=== PATIENT | female | born 1945 | race Caucasian/White ===

== ENCOUNTER → 2017-10-25 11:15 | Outpatient (CLI) | payer MEDICARE, SELFPAY | PROVIDERS: Visit Provider Nurse Practitioner Family | DX: R19.7 Diarrhea, unspecified (principal); R10.9 Unspecified abdominal pain | CPT/HCPCS: 87045; 87493 ==

== ENCOUNTER → 2019-03-17 11:21 | Outpatient (CLI) | payer MEDICARE, SELFPAY ==
--- NOTE | 2019-03-17 11:29 | XR_ITS ---
PROCEDURE: XR CERVICAL SPINE 5V CLINICAL INDICATION: CERVICALGIA Chronic neck pain COMPARISON: No exams were available for comparison FINDINGS: Normal alignment. There is degenerative disc disease at C5-C6 and C6-C7. There is mild anterolisthesis of C4 on 5 of 2 mm. Endplate hypertrophy is present at C5-C6. Foraminal narrowing is noted on the right at C4-C5 and C5-C6 and on the left at C5-C6. Facet arthritic changes are noted from C4-C7. No fracture or dislocation. No lytic or blastic change. IMPRESSION: Cervical spondylosis with degenerative disc disease and facet arthritic change with foraminal narrowing as described above. Dictated by: Eliud Seth MD 03/17/2019 13:09 Electronically signed by Eliud Seth MD in [place] 03/17/2019 13:09
== END ==
PROVIDERS: PCP Nurse Practitioner Family; Visit Provider Nurse Practitioner Family
DX: M54.2 Cervicalgia (principal)
CPT/HCPCS: 72050

== ENCOUNTER → 2020-11-17 12:44 | Outpatient (CLI) | payer MEDICARE, SELFPAY ==
--- NOTE | 2020-11-17 12:50 | XR_ITS ---
PROCEDURE: XR KNEE LT 3V CLINICAL INDICATION: INJURY TO LT KNEE, INTITIAL ENCOUNTER COMPARISON: No exams were available for comparison FINDINGS: Three views are obtained. Moderate to severe degenerative change of the medial joint compartment and patellofemoral joint with moderate degenerative change of the lateral joint compartment. No acute fracture or dislocation. Some chondrocalcinosis in the lateral joint compartment. Small joint effusion. IMPRESSION: Tricompartmental degenerative changes of the left knee joint with small joint effusion. Some chondrocalcinosis in the lateral joint compartment. Dictated by: Luisito Avila MD 11/17/2020 13:03 Luisito Avila MD in [place] 11/17/2020 13:03
== END ==
PROVIDERS: PCP Nurse Practitioner Family; Visit Provider Nurse Practitioner Family
DX: S89.92XA Unspecified injury of left lower leg, initial encounter (principal)
CPT/HCPCS: 73562

== ENCOUNTER → 2021-04-12 07:50 | Outpatient (CLI) | payer MEDICARE, SELFPAY ==
--- NOTE | 2021-04-12 | CA_ITS ---
APPROVED REPORT Heat Treat Worker: Alejandra RCS, RVS Laterality: Bilateral Study Quality: Good Indications: Dizziness Doppler Spectral Velocity Analysis ECA (R) 72.70/11.80 cm/s ECA (L) 56.10/9.70 cm/s dICA (R) 111.50/41.90 cm/s dICA (L) 64.70/21.40 cm/s Power (R) 86.60/33.70 cm/s Power (L) 88.20/34.80 cm/s pICA (R) 33.80/10.50 cm/s pICA (L) 53.90/15.80 cm/s dCCA (R) 65.00/15.80 cm/s dCCA (L) 57.60/18.70 cm/s pCCA (R) 67.60/14.50 cm/s pCCA (L) 75.60/20.20 cm/s Vert (R) 44.10/13.50 cm/s Vert (L) 16.60/2.10 cm/s ICA/CCA 1.70 ICA/CCA 1.10 Findings Duplex evaluation demonstrates antegrade flow of the bilateral Vertebral Arteries. Duplex evaluation demonstrates stenosis of the right proximal internal carotid artery <20% with PSV <140 cm/sec, EDV <100 cm/sec, and IC/CC Ratio <4.0. Duplex evaluation demonstrates stenosis of the left proximal internal carotid artery <20% with PSV <140 cm/sec, EDV <100 cm/sec, and IC/CC Ratio <4.0. Conclusion Duplex evaluation demonstrates antegrade flow of the bilateral Vertebral Arteries. Duplex evaluation demonstrates stenosis of the right proximal internal carotid artery <20% with PSV <140 cm/sec, EDV <100 cm/sec, and IC/CC Ratio <4.0. Duplex evaluation demonstrates stenosis of the left proximal internal carotid artery <20% with PSV <140 cm/sec, EDV <100 cm/sec, and IC/CC Ratio <4.0. Electronically signed by : Eliud Seth MD 04/12/2021 14:53:51
--- NOTE | 2021-04-12 08:02 | MR_ITS ---
PROCEDURE: MR HEAD/BRAIN WO CON CLINICAL INDICATION: SYNCOPE AND DIZZINESS COMPARISON: No exams were available for comparison TECHNIQUE: Routine multiplanar multi echo sequences are performed without gadolinium enhancement. FINDINGS: No midline shift, mass effect, intracranial hemorrhage, or hydrocephalus is evident. There is generalized atrophy with scattered T2 white matter hyperintensities consistent with microangiopathic changes. No evidence of acute infarction. The cerebellopontine angles, cerebellum, and brainstem has an unremarkable appearance. There is a small T2 hyperintensity in the left cerebral peduncle and could be due to a dilated perivascular space or an old small lacunar infarction. An additional small T2 hyperintensity is present in the inferior and anterior aspect of the basal ganglia measuring 5 mm and may be due to a choroidal fissure cyst or an old small lacunar infarction. Nodularity noted along both right and left aspect of the pituitary superiorly possibly due to partial volume averaging artifact from the clinoid versus true pituitary lesions. Dedicated exam without and with contrast with thin sections may provide further evaluation if clinically warranted. The optic chiasm, corpus callosum, and craniocervical junction have an unremarkable appearance. No mastoid effusion or sinus air-fluid level.. IMPRESSION: 1. No acute intracranial findings. 2. Atrophy with chronic ischemic gliotic changes 3. Possible nodules along the superior aspect of both right and left aspect of the pituitary gland versus partial volume averaging artifact from the anterior clinoid. MRI of the pituitary with thin-section images without and with contrast may further evaluate if clinically desired. Dictated by: Eliud Seth MD 04/13/2021 07:32 Eliud Seth MD in [place] 04/13/2021 07:32
--- NOTE | 2021-04-12 09:20 | XR_ITS ---
PROCEDURE: XR FOOT RT MIN 3V CLINICAL INDICATION: FOOT PAIN RT COMPARISON: No exams were available for comparison FINDINGS: Severe osteoarthritic changes are present at the 1st MTP joint. Subchondral cystic changes are present at the distal aspect of the 1st metatarsal. No fracture or dislocation Other findings:None. 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
== END ==
PROVIDERS: PCP Nurse Practitioner Family; Visit Provider Nurse Practitioner Family
DX: R55 Syncope and collapse (principal); R42 Dizziness and giddiness; M79.671 Pain in right foot
CPT/HCPCS: 70551; 73630; 93880

== ENCOUNTER → 2021-04-21 15:16 | Outpatient (CLI) | payer MEDICARE, SELFPAY ==
[2021-04-21 17:03] LABS: Blood Urea Nitrogen 36 mg/dl (7-17); Estimated Glomerular Filt Rate 31 ml/min (>60); GFR (African American) 38 ML/MIN (>60)
== END ==
PROVIDERS: Visit Provider Nurse Practitioner Family
DX: R55 Syncope and collapse (principal); R42 Dizziness and giddiness
CPT/HCPCS: 36415; 82565; 84520

== ENCOUNTER → 2021-04-26 11:10 | Outpatient (CLI) | payer MEDICARE, SELFPAY ==
--- NOTE | 2021-04-26 11:16 | MR_ITS ---
PROCEDURE INFORMATION: Exam: MR Head Without and With Contrast Exam date and time: 04/26/2021 11:31 AM Age: 75 years old Clinical indication: Patient HX: Abnormal mri 04-12-21. Headache. Dizziness. TECHNIQUE: Imaging protocol: MR of the head without and with intravenous contrast. Contrast material: PROHANCE; Contrast volume: 14 ml; Contrast route: INTRAVENOUS (IV); COMPARISON: MR HEAD/BRAIN WO CON 04/12/2021 8:12 AM FINDINGS: Brain: No restricted diffusion within the brain to suggest an acute infarct. There are multiple foci of FLAIR hyperintensity within the cerebral white matter. There is no mass effect or restricted diffusion associated with these foci. In a patient this age, this likely represents chronic small vessel ischemic disease. Stable volume loss of the cerebellum and cerebrum, consistent with atrophy. No cerebral edema. No abnormally enhancing intracranial mass is identified. Cerebral ventricles: Mild age-appropriate prominence of the ventricles. Pituitary gland and sella: The pituitary stalk is midline. No well-defined pituitary lesion is identified on postcontrast images. No suprasellar mass or mass effect upon the optic chiasm is visualized. Bones/joints: Unremarkable, as visualized. Paranasal sinuses: Minimal mucosal thickening of a few ethmoid air cells. Mastoid air cells: No mastoid effusion. Orbital cavity: A right orbital lens implant is visualized. Soft tissues: Unremarkable, as visualized. Other vasculature: There is preservation of flow voids within the intracranial internal carotid arteries bilaterally. IMPRESSION: 1. No acute infarct. 2. No well-defined pituitary lesion is identified. 3. White matter disease, likely representing chronic small vessel ischemic disease. 4. Stable atrophy. 5. Additional findings described above.
== END ==
PROVIDERS: PCP Nurse Practitioner Family; Visit Provider Nurse Practitioner Family
DX: R55 Syncope and collapse (principal); R42 Dizziness and giddiness
CPT/HCPCS: 70553; A9576

== ENCOUNTER → 2022-07-27 12:39 | Outpatient (CLI) | payer MEDICARE, SELFPAY ==
--- NOTE | 2022-07-27 12:44 | XR_ITS ---
FINAL REPORT CLINICAL HISTORY: upper and lower back pain COMPARISON: None FINDINGS: THORACIC SPINE: Three views of the thoracic spine were obtained. There is no fracture present. There is rightward curvature of the thoracic spine. There are moderate to severe degenerative changes. LUMBAR SPINE: Five views of the lumbar spine were obtained. There is no fracture present. There is leftward curvature of the lumbar spine. There is 8 mm of anterolisthesis of L4 on L5. There is vacuum phenomenon at L4-5 and L5-S1. Facet arthropathy is noted in the lower lumbar spine. IMPRESSION: Degenerative changes with no acute process. Reviewed, Interpreted and Dictated by Ovidio Bates III, MD Transcribed by Tiffany Lunsford Authenticated and [facility]
== END ==
PROVIDERS: PCP Nurse Practitioner Family; Visit Provider Nurse Practitioner Family
DX: M54.6 Pain in thoracic spine (principal); M54.50 Low back pain, unspecified
CPT/HCPCS: 72084

== ENCOUNTER → 2022-08-16 14:04 | Outpatient (POV) | payer MEDICARE, SELFPAY ==
[2022-08-16 15:19] VITALS: BP 127/93; PULSE 105; RESP 19; O2SAT 97; BMI 29.4
--- NOTE | 2022-08-16 16:20 | EXP.PAIN.OV ---
HPI Data of Consult Patient: new to practice Consult date: 08/16/22 Requesting Physician: Katie Glover APRN Primary Care Provider: Yecenia Dailey APRN Consult Narrative Reason for consult: Mid/low back pain, right leg neuropathy History of present illness: Ms. Florentino is a 76 year old female who presents today as a new patient. She is a referral from Yecenia Louis office. Today she rates her pain a 7 out of 10. Patient states her pain is all around her mid to low back and that it does radiate bilaterally towards her ribs. Patient states that she did think that she had pulled a muscle when this initially started approximately 1 year ago. She does state that it has worsened since. She does describe this as a aching, throbbing sensation that is worse with increased activity. She does state this interferes with her ability to perform activities of daily living such as cooking and cleaning or even simply walking for prolonged periods. patient denies any surgical history on her back. She states that she has had epidural injections in the past that did provide significant relief of upwards of 3 to 4 months. She states the provider that previously did these injections is no longer at her doctor's office and so she has not been able to get these injections for a little while. Patient does state that she has had a right hip fracture in the past and had pin placement and then later revision surgery at the same location that did cause significant residual pain and neuropathy that radiates down her right leg. Patient cannot tolerate any NSAIDs due to lowered kidney function. She was previously on diclofenac and has stopped this. Patient does take Flexeril as needed however she states that she does notice some side effects of dry mouth. She states this medication is only used in times of significant pain. Patient does use Tylenol on a regular basis along with gabapentin 300 mg 3 times daily. Patient denies any side effects from this medication. Her Ian is [id number]. Its been reviewed and appropriate. CC: Katie Glover APRN [facility] Disclaimer: The information contained in this section may have been updated after the patient was seen, as this information can be updated by other users. Medical History (Updated 08/16/22 @ 16:28 by Katie Glover APRN) Cataract Hepatitis C HLD (hyperlipidemia) HTN (hypertension) Surgical History (Updated 08/16/22 @ 15:24 by Diana Carter RN) H/O eye surgery H/O right heart catheterization H/O tubal ligation H/O: hysterectomy Family History (Updated 08/16/22 @ 15:23 by Diana Carter RN) Other No significant family history Social History (Updated 08/16/22 @ 15:26 by Diana Carter RN) Smoking Status: Never smoker alcohol intake: never substance use type: denies use current occupational status: retired Travel in the last 8 weeks: None Review of Systems Review of Systems Review of systems:: pertinent systems reviewed and negative unless documented below Review of systems (narrative): Review of Systems: General: No recent weight changes, no fever, no sleep disturbances Respiratory: No cough, no shortness of air, no recurring pulmonary infections Cardiovascular/peripheral vascular: No chest pain, no palpitations, no edema, no shortness of breath Gastrointestinal: No new onset incontinence, normal bowel movements reported Genitourinary: No new onset incontinence Musculoskeletal: Mid back pain, low back pain, leg pain Psychiatric: [Normal mood/affect] Neurological: [Denies weakness in extremities], [denies balance issues] Meds Home Medications and Allergies Home Medications Medication Instructions Recorded Confirmed Type amlodipine 5 mg tablet 5 mg PO DAILY BLOOD PRESSURE 01/14/18 08/16/22 History biotin 300 mcg tablet 300 mcg PO DAILY SUPPLIMENT 01/14/18 08/16/22 History gabapentin 300 mg capsule 300 mg PO TID Pain 01/14/18 08/16/22 History (Neurontin) mohan
== END ==
PROVIDERS: PCP Nurse Practitioner Family; Visit Provider Nurse Practitioner Family
DX: M51.16 Intervertebral disc disorders with radiculopathy, lumbar region (principal); M43.16 Spondylolisthesis, lumbar region; M47.26 Other spondylosis with radiculopathy, lumbar region; M25.551 Pain in right hip
CPT/HCPCS: 99202; G0463

== ENCOUNTER 2022-08-29 10:47 | Day surgery (SDC) | payer MEDICARE, SELFPAY ==
[2022-08-29 11:06] VITALS: BP 137/80; PULSE 98; RESP 18; TEMP 36.4; O2SAT 98; BMI 28.9
[2022-08-29 11:20] VITALS: BP 135/73; PULSE 84; RESP 18; O2SAT 98
--- NOTE | 2022-08-29 11:26 | EXP.PAIN.PRO ---
Procedure Date: 08/29/22 Time: 11:20 Anesthesiologist:: Randy Corrales CRNA Complications:: None Pre-procedure Diagnosis:: Degenerative disc disease lumbar spine multilevels. Lumbar radiculopathy. Lumbar spondylosis. Post-procedure Diagnosis:: Same. Indications for Procedure:: Patient is a very pleasant 76-year-old female that comes our clinic today for lumbar epidural steroid injection at L4-5 level. Patient has had these in the past at a different facility with significant improvement terms of her overall low back pain as well as bilateral hip and leg pain. Today she rates her pain 7/10. Patient is very active mowing lawns and planting barrientos. She has been moving around a lot with the weather getting warmer. She complains of low back pain as well as bilateral hip and leg radicular symptoms at times. She describes her low back pain as constant, dull, aching. Procedure Details:: Procedure: Lumbar epidural steroid injection under fluoroscopy Informed consent was obtained and the risks and benefits of the procedure were explained to the patient. The patient was taken to the procedure room and noninvasive monitors placed, including noninvasive blood pressure cuff and pulse oximeter. The back was viewed using C-arm Fluoroscopy and prepped using Chloraprep as a cleansing solution and the L4-L5 interspace was palpated. Skin and subcutaneous tissues were anesthetized using lidocaine 1.5% and a 25-gauge needle. After this, an 18-gauge Touhy epidural needle was placed into the L4-L5 interspace and advanced using fluoroscopic guidance and loss of resistance to air until the epidural space was encountered. After confirmation of needle placement in the epidural space, with dye, a solution containing normal saline, 3 mL and Depo-Medrol 80 mg were incrementally injected into the lumbar epidural space. The patient tolerated the procedure well with no complications. The patient was observed in the Pain Clinic and then discharged home neurologically intact. Plan and Disposition:: Patient was discharged without incident.
[2022-08-29 11:27] VITALS: BP 132/74; PULSE 79; RESP 18; O2SAT 98
== END 2022-08-29 11:27 | disposition home or self-care (01) ==
PROVIDERS: PCP Nurse Practitioner Family; Visit Provider Nurse Anesthetist, Certified Registered
DX: M51.16 Intervertebral disc disorders with radiculopathy, lumbar region (principal); M47.26 Other spondylosis with radiculopathy, lumbar region
CPT/HCPCS: 62323; J1040

== ENCOUNTER → 2022-09-25 10:00 | Outpatient (POV) | payer MEDICARE, SELFPAY ==
--- NOTE | 2022-09-25 10:04 | EXP.PAIN.SOA ---
[facility] Pain Management SOAP Note Subjective:: Patient is a pleasant 76-year-old female who presents today for follow-up of lumbar epidural steroid injection L4-L5 on 08/29/2022. We are currently treating the patient for degenerative disc disease of lumbar spine with lumbar radiculopathy symptoms, lumbar facet arthropathy, low back pain, mid back pain, anterolisthesis of lumbar spine, right hip pain. Today the patient rates her pain a 0 out of 10. Patient denies any new trauma or injury. Patient denies any change location or type of pain she experiences. She states that she has had at least 90% improvement following this injection and only had mild tenderness at the site. Patient states she has been able to increase her activity with improved functionality and decreased pain symptoms. Patient does not take any NSAIDs related to her lower kidney function. She is prescribed Flexeril 10 mg as needed and gabapentin 300 mg 3 times daily.? Patient denies any side effects from this medication.? Her Ian is [id number].? Its been reviewed and appropriate. Review of Systems: General: No recent weight changes, no fever, no sleep disturbances Respiratory: No cough, no shortness of air, no recurring pulmonary infections Cardiovascular/peripheral vascular: No chest pain, no palpitations, no edema, no shortness of breath Gastrointestinal: No new onset incontinence, normal bowel movements reported Genitourinary: No new onset incontinence Musculoskeletal: Low back pain Psychiatric: [Normal mood/affect] Neurological: [Denies weakness in extremities], [denies balance issues] Objective:: Physical Exam: General: Alert and oriented x3, no acute distress, pleasant and cooperative Lungs: Respirations even and unlabored, symmetrical chest expansion Eyes: PERRL Musculoskeletal: Flexion and extension of lumbar [spine] somewhat guarded secondary to pain, [antalgic gait noted] Neurological: Speech clear, no gross sensory deficit Assessment:: Degenerative disc disease of lumbar spine with lumbar radiculopathy symptoms, lumbar facet arthropathy, low back pain, mid back pain, anterolisthesis of lumbar spine, right hip pain Plan:: Patient has had significant improvement of her low back pain following her lumbar epidural steroid injection. At this time she does not need any additional injective therapy. Patient will return to clinic in 1 month for reevaluation of symptoms and plan of care. Patient has been instructed to contact the clinic with any concerns before the next appointment. Dr. Kaur has reviewed this note and agrees with this plan of care. This note was dictated using voice recognition software and make contain errors or omissions. [facility] Disclaimer: The information contained in this section may have been updated after the patient was seen, as this information can be updated by other users. Medical History Cataract Hepatitis C HLD (hyperlipidemia) HTN (hypertension) Surgical History H/O eye surgery H/O right heart catheterization H/O tubal ligation H/O: hysterectomy Family History Other No significant family history Social History Smoking Status: Never smoker alcohol intake: never substance use type: denies use current occupational status: retired Travel in the last 8 weeks: None
[2022-09-25 10:09] VITALS: BP 150/87; PULSE 97; RESP 18; O2SAT 97; BMI 29.8
== END ==
PROVIDERS: PCP Nurse Practitioner Family; Visit Provider Nurse Practitioner Family
DX: M51.16 Intervertebral disc disorders with radiculopathy, lumbar region (principal); M47.26 Other spondylosis with radiculopathy, lumbar region; M43.16 Spondylolisthesis, lumbar region; M25.551 Pain in right hip
CPT/HCPCS: 99212; G0463

== ENCOUNTER → 2022-10-23 10:45 | Outpatient (POV) | payer MEDICARE, SELFPAY ==
--- NOTE | 2022-10-23 11:08 | A.OFFVIS_ITS ---
[facility] Pain Management SOAP Note Subjective:: Patient is a pleasant 76-year-old female who presents today for follow-up. We are currently treating the patient for degenerative disc disease of lumbar spine with lumbar radiculopathy symptoms, lumbar facet arthropathy, low back pain, mid back pain, right hip pain. Today she rates her pain a 2 out of 10. Patient denies any new trauma or injury. Patient denies any change to location or type of pain she experiences. Patient previously had a lumbar epidural steroid injection back in the end of August that provided upwards of 90% relief and is still continuing to provide additional improvement. Patient states she has been able to increase her activity with decreased pain symptoms. She does state that she has not had to even use her Flexeril as often due to her significant relief. Patient is c currently managed with tramadol 50 mg 4 times a day from her primary care doctor. Patient denies any side effects from this medication. Her Ian is [id number]. Its been reviewed and appropriate. Review of Systems: General: No recent weight changes, no fever, no sleep disturbances Respiratory: No cough, no shortness of air, no recurring pulmonary infections Cardiovascular/peripheral vascular: No chest pain, no palpitations, no edema, no shortness of breath Gastrointestinal: No new onset incontinence, normal bowel movements reported Genitourinary: No new onset incontinence Musculoskeletal: Low back pain Psychiatric: [Normal mood/affect] Neurological: [Denies weakness in extremities], [denies balance issues] Objective:: Physical Exam: General: Alert and oriented x3, no acute distress, pleasant and cooperative Lungs: Respirations even and unlabored, symmetrical chest expansion Eyes: PERRL Musculoskeletal: Flexion and extension of lumbar [spine] somewhat guarded secondary to pain, [antalgic gait noted] Neurological: Speech clear, no gross sensory deficit Assessment:: Degenerative disc disease of lumbar spine with lumbar radiculopathy symptoms, lumbar facet arthropathy, low back pain, mid back pain, right hip pain Plan:: Patient continues to do well following her lumbar epidural steroid injection and does not require any additional injective therapy at this time. Patient will return to clinic in 3 months for reevaluation of symptoms and plan of care. Patient has been instructed to contact the clinic with any concerns before the next appointment. Dr. Kaur has reviewed this note and agrees with this plan of care. This note was dictated using voice recognition software and make contain errors or omissions. [facility] Disclaimer: The information contained in this section may have been updated after the patient was seen, as this information can be updated by other users. Medical History Cataract Hepatitis C HLD (hyperlipidemia) HTN (hypertension) Surgical History H/O eye surgery H/O right heart catheterization H/O tubal ligation H/O: hysterectomy Family History Other No significant family history Social History Smoking Status: Never smoker alcohol intake: never substance use type: denies use current occupational status: retired Travel in the last 8 weeks: None
[2022-10-23 11:30] VITALS: BP 132/78; PULSE 95; RESP 18; BMI 29.2
== END ==
PROVIDERS: Visit Provider Nurse Practitioner Family
DX: M51.16 Intervertebral disc disorders with radiculopathy, lumbar region (principal); M47.26 Other spondylosis with radiculopathy, lumbar region; M25.551 Pain in right hip
CPT/HCPCS: 99212; G0463

== ENCOUNTER → 2023-03-16 15:50 | Outpatient (CLI) | payer MEDICARE, SELFPAY | PROVIDERS: PCP Nurse Practitioner Family; Visit Provider Nurse Practitioner Family | DX: R82.90 Unspecified abnormal findings in urine (principal); B96.29 Other Escherichia coli [E. coli] as the cause of diseases classified elsewhere | CPT/HCPCS: 87086 ==

== ENCOUNTER → 2023-04-09 10:50 | Outpatient (POV) | payer MEDICARE, SELFPAY ==
--- NOTE | 2023-04-09 11:04 | EXP.PAIN.SOA ---
[facility] Pain Management SOAP Note Subjective:: Patient is a pleasant 77-year-old female who presents today for follow-up. We are currently treating the patient for degenerative disc disease of lumbar spine with lumbar radiculopathy symptoms, lumbar facet arthropathy, low back pain, mid back pain, right hip pain. Today she rates her pain a 5 out of 10. Patient denies any new injury or trauma from our last visit. She does state that she has been experiencing more pain along her low back and bilateral hips. She does describe this as an aching, throbbing sensation with some numbness. She does state the pain interferes with her ability perform activities of daily living such as cooking and cleaning. Patient does state that she had planned on coming back to our office sooner however she frequently would take a couple Tylenol and put it off a little bit longer. She does state that it has really gotten more bothersome now and is interested in any possible help we may be able to provide. She is currently managed with tramadol 50 mg 4 times a day and gabapentin 300 mg 6 times a day from her PCP. She denies any side effects from this medication. Her Ian has been reviewed and is appropriate. Review of Systems: General: No recent weight changes, no fever, no sleep disturbances Respiratory: No cough, no shortness of air, no recurring pulmonary infections Cardiovascular/peripheral vascular: No chest pain, no palpitations, no edema, no shortness of breath Gastrointestinal: No new onset incontinence, normal bowel movements reported Genitourinary: No new onset incontinence Musculoskeletal: Low back pain, bilateral hip pain Psychiatric: [Normal mood/affect] Neurological: [Denies weakness in extremities], [denies balance issues] Objective:: Physical Exam: General: Alert and oriented x3, no acute distress, pleasant and cooperative Lungs: Respirations even and unlabored, symmetrical chest expansion Eyes: PERRL Musculoskeletal: Flexion and extension of lumbar [spine] somewhat guarded secondary to pain, [antalgic gait noted] point tenderness along bilateral SIs with positive bilateral Daniel's, Garth's, Gaenslen's, compression and distraction exam, point tenderness along bilateral greater trochanteric bursa's Neurological: Speech clear, no gross sensory deficit Assessment:: Degenerative disc disease of lumbar spine with lumbar radiculopathy symptoms, lumbar facet arthropathy, low back pain, mid back pain, right hip pain Plan:: Patient is experiencing worsening pain in her low back and bilateral hips. Patient did have limited range of motion of her lumbar spine along with point tenderness at her bilateral SIs and a positive bilateral Daniel's, Garth's, Gaenslen's, compression and distraction exam. Patient did also have point tenderness along her bilateral greater trochanteric bursa's. I have discussed with the patient that she may benefit from bilateral SI injections. Risk and benefits of this injection were explained to the patient and she would like to proceed forward with this plan of care. Have also discussed with patient in future if she continues to have symptoms of bursitis we will look at doing injections at that location and a future date. Patient has tried and failed conservative therapy such as oral medications, heat and ice, topicals, at home exercising and stretching for longer than 12 weeks. Her symptoms have been going on for longer than 6 months. Patient will be scheduled for bilateral SI injections. Patient has been instructed to contact the clinic with any concerns before the next appointment. Dr. Kaur has reviewed this note and agrees with this plan of care. This note was dictated using voice recognition software and make contain errors or omissions. [facility] Disclaimer: The information contained in this section may have been updated after the patient was seen, as this information can be updated by other users. Medical History (Updated 03/16/23 @ 14:
[2023-04-09 12:30] VITALS: BP 159/98; PULSE 99; RESP 18; O2SAT 98; BMI 28.3
== END ==
PROVIDERS: PCP Nurse Practitioner Family; Visit Provider Nurse Practitioner Family
DX: M51.16 Intervertebral disc disorders with radiculopathy, lumbar region (principal); M47.26 Other spondylosis with radiculopathy, lumbar region; M54.6 Pain in thoracic spine; M25.551 Pain in right hip; M70.60 Trochanteric bursitis, unspecified hip; M46.1 Sacroiliitis, not elsewhere classified
CPT/HCPCS: 99212; G0463

== ENCOUNTER 2023-04-24 09:42 | Day surgery (SDC) | payer MEDICARE, SELFPAY ==
[2023-04-24 09:52] VITALS: BP 140/82; PULSE 96; RESP 18; TEMP 36.2; O2SAT 98; BMI 28.3
[2023-04-24 10:04] VITALS: BP 142/91; PULSE 90; O2SAT 97
[2023-04-24 10:05] VITALS: BP 130/79; PULSE 96; RESP 18; O2SAT 98
--- NOTE | 2023-04-24 10:25 | P.PCN_ITS ---
Procedure Date: 04/24/23 Time: 10:00 Anesthesiologist:: Randy Corrales CRNA Complications:: None Pre-procedure Diagnosis:: Bilateral sacroiliitis. Post-procedure Diagnosis:: Same. Indications for Procedure:: Patient is a pleasant 77-year-old female that comes our clinic today for bilateral sacroiliac joint injections. Patient reports low lumbar back pain bilaterally. Bilateral posterior hip pain. She rates her pain 8/10. Procedure Details:: Procedure: Bilateral sacroiliac joint injections under fluoroscopy Informed consent was obtained and the risks and benefits of the procedure were explained to the patient.~ The patient was taken to the procedure room and noninvasive monitors were placed including a noninvasive blood pressure cuff and pulse oximeter.~ The patient was placed prone on the procedure table. Both hips were cleansed using Betadine as a cleansing solution. C-arm fluoroscopy was used to view the right sacroiliac joint.~ The skin and subcutaneous tissues were anesthetized using lidocaine 1.5% and a 25-gauge needle.~ After this, a 22-gauge spinal needle was inserted under fluoroscopic guidance into the inferior aspect of the right sacroiliac joint.~ Omnipaque dye was injected and good spread was seen throughout the joint.~ After this, approximately 5 mL of bupivacaine, 0.25% and Depo-Medrol, 40 mg was incrementally injected into the right sacroiliac joint. We then moved to the left sacroiliac joint.~ The skin and subcutaneous tissues were anesthetized using lidocaine 1.5% and a 25-gauge needle.~ After this, a 22- gauge spinal needle was inserted under fluoroscopic guidance into the inferior aspect of the left sacroiliac joint.~ Omnipaque dye was injected and good spread was seen throughout the joint. After this, approximately 5 mL of bupivacaine, 0.25% and Depo-Medrol, 40 mg was incrementally injected into the left sacroiliac joint.~ The patient tolerated the procedure well with no complications. The patient was observed in the Pain Clinic and then was discharged home neurologically intact. Plan and Disposition:: Patient was discharged without incident.
== END 2023-04-24 10:05 | disposition home or self-care (01) ==
LOC: SC.PAINP 09:43
PROVIDERS: PCP Nurse Practitioner Family; Visit Provider Nurse Anesthetist, Certified Registered
DX: M46.1 Sacroiliitis, not elsewhere classified (principal)
CPT/HCPCS: 27096; G0260; J1040

== ENCOUNTER → 2023-05-10 10:25 | Outpatient (POV) | payer MEDICARE, SELFPAY ==
[2023-05-10 10:31] VITALS: BP 119/77; PULSE 78; RESP 18; O2SAT 96; BMI 27.8
--- NOTE | 2023-05-10 10:34 | EXP.PAIN.SOA ---
[facility] Pain Management SOAP Note Subjective:: Patient is a pleasant 77-year-old female who presents today for follow-up of bilateral SI injections on 04/24/2023. We are currently treating the patient for degenerative disc disease of lumbar spine with lumbar radiculopathy symptoms, low back pain, mid back pain, right hip pain, sacroiliitis. Today she rates her pain a 1 out of 10. Patient states she has had almost 100% improvement following this injection. She states it still providing significant relief and she has been able to increase her activity with decreased pain symptoms. Patient states she feels like she has overall better function. Her Ian has been reviewed and is appropriate. Review of Systems: General: No recent weight changes, no fever, no sleep disturbances Respiratory: No cough, no shortness of air, no recurring pulmonary infections Cardiovascular/peripheral vascular: No chest pain, no palpitations, no edema, no shortness of breath Gastrointestinal: No new onset incontinence, normal bowel movements reported Genitourinary: No new onset incontinence Musculoskeletal: Low back pain Psychiatric: [Normal mood/affect] Neurological: [Denies weakness in extremities], [denies balance issues] Objective:: Physical Exam: General: Alert and oriented x3, no acute distress, pleasant and cooperative Lungs: Respirations even and unlabored, symmetrical chest expansion Eyes: PERRL Musculoskeletal: Flexion and extension of lumbar [spine] somewhat guarded secondary to pain Neurological: Speech clear, no gross sensory deficit Assessment:: Degenerative disc disease of lumbar spine with lumbar radiculopathy symptoms, low back pain, mid back pain, right hip pain, bilateral sacroiliitis Plan:: Patient has had significant improvement following her bilateral SI injections and does not require any additional injection therapy at this time. Patient will return to clinic in 1 month for reevaluation of symptoms and plan of care. Patient has been instructed to contact the clinic with any concerns before the next appointment. Dr. Kaur has reviewed this note and agrees with this plan of care. This note was dictated using voice recognition software and make contain errors or omissions. [facility] Disclaimer: The information contained in this section may have been updated after the patient was seen, as this information can be updated by other users. Medical History Cataract HLD (hyperlipidemia) HTN (hypertension) Surgical History H/O eye surgery H/O right heart catheterization H/O tubal ligation H/O: hysterectomy Family History Other No significant family history Social History Smoking Status: Never smoker alcohol intake: never substance use type: denies use current occupational status: retired Travel in the last 8 weeks: None
== END ==
PROVIDERS: PCP Nurse Practitioner Family; Visit Provider Nurse Practitioner Family
DX: M51.16 Intervertebral disc disorders with radiculopathy, lumbar region (principal); M54.6 Pain in thoracic spine; M25.551 Pain in right hip; M46.1 Sacroiliitis, not elsewhere classified
CPT/HCPCS: 99212; G0463

== ENCOUNTER → 2023-06-07 09:46 | Outpatient (POV) | payer MEDICARE, SELFPAY ==
[2023-06-07 10:04] VITALS: BP 120/78; PULSE 88; RESP 18; O2SAT 98; BMI 28.3
--- NOTE | 2023-06-07 10:14 | A.OFFVIS_ITS ---
[facility] Pain Management SOAP Note Subjective:: Patient is a pleasant 77-year-old female who presents today for 1 month follow- up. We are currently treating the patient's for degenerative disc disease of lumbar spine with lumbar radiculopathy symptoms, low back pain, mid back pain, right hip pain, sacroiliitis. Today she rates her pain a 3 out of 10. She states that she has not had any trauma or injury. She does state that she has been experiencing worsening pain in her low back that is higher up on her spine. Patient states that she has been taking down [place] decorations and may have aggravated some of her back symptoms. Patient did previously have bilateral SI injections in the middle of April that did provide nearly 100% relief and at our last visit had continued to provide improvement. Patient states that she has had a little flareup due to increased activity with the holidays. Her Ian has been reviewed and is appropriate. Review of Systems: General: No recent weight changes, no fever, no sleep disturbances Respiratory: No cough, no shortness of air, no recurring pulmonary infections Cardiovascular/peripheral vascular: No chest pain, no palpitations, no edema, no shortness of breath Gastrointestinal: No new onset incontinence, normal bowel movements reported Genitourinary: No new onset incontinence Musculoskeletal: Low back pain Psychiatric: [Normal mood/affect] Neurological: [Denies weakness in extremities], [denies balance issues] Objective:: Physical Exam: General: Alert and oriented x3, no acute distress, pleasant and cooperative Lungs: Respirations even and unlabored, symmetrical chest expansion Eyes: PERRL Musculoskeletal: Flexion and extension of lumbar [spine] somewhat guarded secondary to pain, [antalgic gait noted] Neurological: Speech clear, no gross sensory deficit Assessment:: Degenerative disc disease of lumbar spine with lumbar radiculopathy symptoms, low back pain, mid back pain, right hip pain, sacroiliitis Plan:: Patient is experiencing worsening pain in her lumbar spine with limited range of motion. I have discussed with the patient that she has not had any advanced imaging for some time however we did do x-ray imaging back earlier this year. I will order MRI without contrast of her lumbar spine and have the patient return to clinic in 1 month for reevaluation of symptoms and plan of care. I have discussed with the patient that she may benefit from injection therapy in the future at this site however we will review over this after her imaging. Patient has been instructed to contact the clinic with any concerns before the next appointment. Dr. Kaur has reviewed this note and agrees with this plan of care. This note was dictated using voice recognition software and make contain errors or omissions. [facility] Disclaimer: The information contained in this section may have been updated after the daniella nt was seen, as this information can be updated by other users. Medical History Cataract HLD (hyperlipidemia) HTN (hypertension) Surgical History H/O eye surgery H/O right heart catheterization H/O tubal ligation H/O: hysterectomy Family History Other No significant family history Social History Smoking Status: Never smoker alcohol intake: never substance use type: denies use current occupational status: retired Travel in the last 8 weeks: None
== END ==
LOC: SC.PAIN 09:47
PROVIDERS: PCP Nurse Practitioner Family; Visit Provider Nurse Practitioner Family
DX: M51.16 Intervertebral disc disorders with radiculopathy, lumbar region (principal); M25.551 Pain in right hip; M46.1 Sacroiliitis, not elsewhere classified
CPT/HCPCS: 99212; G0463

== ENCOUNTER 2023-06-29 08:55 | Outpatient (CLI) | payer MEDICARE, SELFPAY ==
--- NOTE | 2023-06-29 09:03 | MR_ITS ---
FINAL REPORT CLINICAL HISTORY: LOW BACK PAIN bilateral hip pain COMPARISON: None FINDINGS: Multiplanar MR imaging of the lumbar spine was performed without contrast. On the sagittal T2-weighted images, there is abnormal decreased signal throughout the lumbar discs. There is moderate loss of height of the L4-5 and L5-S1 discs, as well as grade 1 spondylolisthesis of L4 on L5. There is heterogeneous signal throughout the marrow of the lumbar spine, likely related to red marrow conversion. The vertebrae are of normal height. The vertebral alignment is normal. L1-2: There is no significant canal stenosis or neural foraminal narrowing. L2-3: A small annular bulge is present with mild bilateral neural foraminal narrowing. L3-4: Mild to moderate annular bulge is present with moderate bilateral neural foraminal narrowing. L4-5: A moderate annular bulge is present accentuated by the spondylolisthesis. There is moderate canal stenosis and moderate to severe bilateral neural foraminal narrowing. L5-S1: A small annular bulge is present with mild to moderate bilateral neural foraminal narrowing. IMPRESSION: Multilevel lumbar degenerative change as described, most severe at the L4-5 level. Reviewed, Interpreted and Dictated by Eladio Denis MD Transcribed by Latonia Travis Authenticated and [facility]
== END 2023-06-29 23:59 ==
PROVIDERS: PCP Nurse Practitioner Family; Visit Provider Nurse Practitioner Family
DX: M54.50 Low back pain, unspecified (principal)
CPT/HCPCS: 72148; 76376

== ENCOUNTER 2023-07-25 10:30 | Outpatient (POV) | payer MEDICARE, SELFPAY ==
--- NOTE | 2023-07-25 10:56 | EXP.PAIN.SOA ---
[facility] Pain Management SOAP Note Subjective:: Patient is a pleasant 77-year-old female who presents today for follow-up of her lumbar MRI imaging. Currently treating the patient for degenerative disc disease of lumbar spine with lumbar radiculopathy symptoms, low back pain, mid back pain, right hip pain, sacroiliitis. Today she rates her pain a 3 out of 10. Patient denies any new trauma or injury. She does state that overall she seems to be doing well and maintaining. Patient did have previous SI injections back in April that did provide 100% relief. Patient does state that she will occasionally have some low back pain and feels like that a certain spot in her low back is more bothersome with certain activities such as prolonged driving. Patient states that the pain is very manageable at this time. Patient does do exercise 3 times a week for an hour and that this does help. Her Ian has been reviewed and is appropriate. Review of Systems: General: No recent weight changes, no fever, no sleep disturbances Respiratory: No cough, no shortness of air, no recurring pulmonary infections Cardiovascular/peripheral vascular: No chest pain, no palpitations, no edema, no shortness of breath Gastrointestinal: No new onset incontinence, normal bowel movements reported Genitourinary: No new onset incontinence Musculoskeletal: Low back pain Psychiatric: [Normal mood/affect] Neurological: [Denies weakness in extremities], [denies balance issues] Objective:: Physical Exam: General: Alert and oriented x3, no acute distress, pleasant and cooperative Lungs: Respirations even and unlabored, symmetrical chest expansion Eyes: PERRL Musculoskeletal: Flexion and extension of lumbar [spine] somewhat guarded secondary to pain, [antalgic gait noted] Neurological: Speech clear, no gross sensory deficit Assessment:: Degenerative disc disease of lumbar spine with lumbar radiculopathy symptoms, low back pain, mid back pain, right hip pain, sacroiliitis Plan:: I did review over the patient's MRI findings with her results most severe at the L4-L5 level. I discussed with patient in future she may benefit from a lumbar epidural steroid at this level. We will discuss this at future visits. Patient does seem to be doing overall well and does not need any injection therapy at this time. She will return to clinic in 3 months for reevaluation of symptoms and plan of care. Patient has been instructed to contact the clinic with any concerns before the next appointment. Dr. Kaur has reviewed this note and agrees with this plan of care. This note was dictated using voice recognition software and make contain errors or omissions. [facility] Disclaimer: The information contained in this section may have been updated after the patient was seen, as this information can be updated by other users. Medical History Cataract HLD (hyperlipidemia) HTN (hypertension) Surgical History H/O eye surgery H/O right heart catheterization H/O tubal ligation H/O: hysterectomy Family History Other No significant family history Social History Smoking Status: Never smoker alcohol intake: never substance use type: denies use current occupational status: retired Travel in the last 8 weeks: None
[2023-07-25 10:57] VITALS: BP 134/79; PULSE 85; RESP 18; O2SAT 98; BMI 28.7
== END 2023-07-25 23:59 ==
LOC: SC.PAIN 10:30
PROVIDERS: PCP Nurse Practitioner Family; Visit Provider Nurse Practitioner Family
DX: M51.16 Intervertebral disc disorders with radiculopathy, lumbar region (principal); M25.551 Pain in right hip; M46.1 Sacroiliitis, not elsewhere classified
CPT/HCPCS: 99212; G0463

== ENCOUNTER 2023-10-18 10:00 | Outpatient (POV) | payer MEDICARE, SELFPAY ==
--- NOTE | 2023-10-18 10:06 | A.OFFVIS_ITS ---
[facility] Pain Management SOAP Note Subjective:: Patient is a pleasant 77-year-old female who presents today for 3-month follow- up. We are currently treating the patient for degenerative disc disease of lumbar spine with lumbar radiculopathy symptoms, low back pain, mid back pain, right hip pain, sacroiliitis. Today she rates her pain a 4 out of 10. Patient denies any new trauma or injury. Patient does state that she has been having a little bit more pain in her low back. She states that it just goes in and around her hips and denies any symptoms going into her legs. Patient does state that she was doing really well up until the last 2 weeks. She states that she is not sure if she just did something more when she was working in the garden. She describes it as an aching sensation and does feel like she has a small knot in her back that is aggravated when she drives for long periods of time. Patient does state that she has still been exercising on a regular basis. She does feel like that she is having some GI issues over the last week and is unsure if it is related to a bug. She is prescribed tramadol and gabapentin f rom her PCP. Her Ian has been reviewed and is appropriate. Review of Systems: General: No recent weight changes, no fever, no sleep disturbances Respiratory: No cough, no shortness of air, no recurring pulmonary infections Cardiovascular/peripheral vascular: No chest pain, no palpitations, no edema, no shortness of breath Gastrointestinal: No new onset incontinence, normal bowel movements reported Genitourinary: No new onset incontinence Musculoskeletal: Low back pain Psychiatric: [Normal mood/affect] Neurological: [Denies weakness in extremities], [denies balance issues] Objective:: Physical Exam: General: Alert and oriented x3, no acute distress, pleasant and cooperative Lungs: Respirations even and unlabored, symmetrical chest expansion Eyes: PERRL Musculoskeletal: Flexion and extension of lumbar [spine] somewhat guarded secondary to pain, [antalgic gait noted] Neurological: Speech clear, no gross sensory deficit Assessment:: degenerative disc disease of lumbar spine with lumbar radiculopathy symptoms, low back pain, mid back pain, right hip pain, sacroiliitis Plan:: I have discussed with patient that she still may benefit from additional injections however due to possibly being under the weather that that might be playing a role aggravating some of the symptoms that it may be beneficial to wait. I will order the patient a compounded cream and have her follow back up in 1 month for reevaluation of symptoms and plan of care. Patient has been instructed to contact the clinic with any concerns before the next appointment. Dr. Kaur has reviewed this note and agrees with this plan of care. This note was dictated using voice recognition software and make contain errors or omissions. [facility] Disclaimer: The information contained in this section may have been updated after the patient was seen, as this information can be updated by other users. Medical History Cataract HLD (hyperlipidemia) HTN (hypertension) Surgical History H/O eye surgery H/O tubal ligation H/O: hysterectomy H/O right heart catheterization Family History Other No significant family history Social History Smoking Status: Never smoker alcohol intake: never substance use type: denies use current occupational status: other Travel in the last 8 weeks: None
[2023-10-18 10:12] VITALS: BP 125/74; PULSE 84; RESP 18; O2SAT 97; BMI 28.9
== END 2023-10-18 23:59 | disposition home or self-care (01) ==
LOC: SC.PAIN 10:01
PROVIDERS: PCP Nurse Practitioner Family; Visit Provider Nurse Practitioner Family
DX: M51.16 Intervertebral disc disorders with radiculopathy, lumbar region (principal); M54.50 Low back pain, unspecified; M25.551 Pain in right hip; M46.1 Sacroiliitis, not elsewhere classified
CPT/HCPCS: 99212; G0463

== ENCOUNTER 2024-04-18 14:18 | Outpatient (CLI) | payer MEDICARE, SELFPAY ==
[2024-04-18 17:26] LABS: Basophils # 0.1 K/mm3 (0-0.2); Basophils % 1.1 % (0.1-2.0); Eosinophils # 0.3 K/mm3 (0.0-0.4); Eosinophils % 4.4 % (0.1-12.0); Hematocrit 42.7 % (37.0-47.0); Hemoglobin 14.3 g/dL (12.2-16.2); Lymphocytes # 1.8 K/mm3 (0.7-4.5); Lymphocytes % 31.2 % (10-50); Mean Corpuscular HGB Conc 33.4 g/dL (31.8-35.4); Mean Corpuscular Hemoglobin 31.9 pg (27.0-31.2); Mean Corpuscular Volume 95.4 fl (81-99); Mean Platelet Volume 8.3 fl (7.4-10.4); Monocytes # 0.5 K/mm3 (0.1-1.0); Monocytes % 9.2 % (1.7-9.3); Neutrophils # 3.1 K/mm3 (1.8-7.8); Neutrophils % 54.1 % (37.0-80.0); Platelet Count 259 K/mm3 (142-424); Red Blood Count 4.48 M/mm3 (4.20-5.40); Red Cell Distribution Width 12.9 % (11.5-17.5); White Blood Count 5.8 K/mm3 (4.8-10.8)
[2024-04-23 08:21] LABS: Lyme B. burgdorferi PCR Blood Negative (Negative)
== END 2024-04-18 23:59 | disposition home or self-care (01) ==
LOC: LAB.DROPOF 04-21 10:15
PROVIDERS: PCP Nurse Practitioner Family; Visit Provider Nurse Practitioner Family
DX: L03.115 Cellulitis of right lower limb (principal); W57.XXXA Bitten or stung by nonvenomous insect and other nonvenomous arthropods, initial encounter
CPT/HCPCS: 85025; 87476

== ENCOUNTER 2025-02-04 09:45 | Outpatient (CLI) | payer MEDICARE, SELFPAY ==
[2025-02-04 14:35] LABS: Hematocrit 42.2 % (37.0-47.0); Hemoglobin 13.1 g/dL (12.2-16.2); Immature Granulocytes % 0.2 %; Mean Corpuscular HGB Conc 31.0 g/dL (31.8-35.4); Mean Corpuscular Hemoglobin 30.3 pg (27.0-31.2); Mean Corpuscular Volume 97.5 fl (81-99); Nucleated Red Blood Cells % 0 %; Platelet Count 215 K/mm3 (142-424); Red Blood Count 4.33 M/mm3 (4.20-5.40); Red Cell Distribution Width-SD 47.7 fL; White Blood Count 5.5 K/mm3 (4.8-10.8)
[2025-02-04 15:58] LABS: Albumin Level 4.5 g/dl (3.5-5.0); Chloride 108 mmol/L (98-107)
[2025-02-04 15:59] LABS: Potassium 5.1 mmoL/L (3.5-5.1); Sodium 139 mmol/L (136-145)
[2025-02-04 16:01] LABS: Alanine Aminotransferase 19 U/L (12-78); Albumin/Globulin Ratio 1.6 (1.1-1.8); Anion Gap 14.1 mEq/L (5-15); Aspartate Amino Transferase 38 U/L (14-36); Blood Urea Nitrogen 26 mg/dl (7-17); Carbon Dioxide 22 mmol/L (22.0-30.0); Creatinine,Serum 1.40 mg/dl (0.52-1.04); Estimated Glomerular Filt Rate 36 ml/min (>60); GFR (African American) 44 ML/MIN (>60); Globulin 2.8 g/dL (1.3-3.2); Total Protein,Serum 7.3 g/dl (6.3-8.2)
[2025-02-04 16:02] LABS: Alkaline Phosphatase 83 U/L (38-126); Bilirubin,Total 0.4 mg/dl (0.2-1.3); Calcium 10.4 mg/dl (8.4-10.2); Cholesterol 214 mg/dl (140-200); Glucose 79 mg/dl (74-100); HDL Cholesterol 83 mg/dl (40-60); Magnesium 1.6 mg/dl (1.6-2.3); Triglycerides 129 mg/dl (30-150)
[2025-02-04 16:21] LABS: 25-OH Vitamin D, Total 66.8 ng/mL (30-100)
[2025-02-04 16:33] LABS: Thyroid Stimulating Hormone 0.41 uIU/mL (0.465-4.68)
== END 2025-02-04 23:59 ==
LOC: LAB.DROPOF 02-06 09:36
PROVIDERS: PCP Nurse Practitioner Family; Visit Provider Nurse Practitioner Family
DX: M85.80 Other specified disorders of bone density and structure, unspecified site (principal); I11.9 Hypertensive heart disease without heart failure; E78.5 Hyperlipidemia, unspecified
CPT/HCPCS: 80053; 80061; 82306; 83735; 84443; 85025